=== PATIENT | male | born 2000 | race Caucasian/White ===

== ENCOUNTER 2022-08-20 21:21 | Inpatient (IN) | payer OTHER ==
[~2022-08-20] VITALS: Ht 180.3 cm; Wt 75.0 kg
[2022-08-20 22:24] LABS: HEMATOCRIT 45.8 % (42.0-52.0); HEMOGLOBIN 15.3 g/dl (13.5-17.5); MEAN CORPUSCULAR HEMOGLOBIN 30.2 pg (27.0-33.0); MEAN CORPUSCULAR HGB CONC 33.4 g/dl (32.0-36.5); MEAN CORPUSCULAR VOLUME 90.3 fl (80.0-96.0); PLATELET COUNT, AUTOMATED 265 10^3/uL (150-450); RED BLOOD COUNT 5.07 10^6/uL (4.30-6.10); WHITE BLOOD COUNT 5.4 10^3/uL (4.0-10.0)
[2022-08-20 22:46] LABS: RSV AMPLIFICATION NEGATIVE (NEGATIVE)
[2022-08-20 22:53] LABS: ACETAMINOPHEN LEVEL < 2.0 UG/ML (10.0-30.0); ALBUMIN 4.2 GM/DL (3.2-5.2); ALT/SGPT 32 U/L (12-78); BILIRUBIN,DIRECT 0.2 MG/DL (0.0-0.2); BLOOD UREA NITROGEN 13 MG/DL (7-18); CALCIUM LEVEL 8.5 MG/DL (8.5-10.1); CARBON DIOXIDE LEVEL 24 MEQ/L (21-32); CHLORIDE LEVEL 113 MEQ/L (98-107); CREATININE FOR GFR 1.13 MG/DL (0.70-1.30); ETHYL ALCOHOL (ETHANOL) 0.275 % (0.000-0.010); GLOMERULAR FILTRATION RATE > 60.0 (>60); GLUCOSE, FASTING 104 MG/DL (70-100); POTASSIUM SERUM 4.1 MEQ/L (3.5-5.1); SALICYLATE LEVEL < 1.7 MG/DL (5.0-30.0); SODIUM LEVEL 145 MEQ/L (136-145); THYROID STIMULATING HORMONE 0.873 uIU/ML (0.358-3.740); TOTAL PROTEIN 7.4 GM/DL (6.4-8.2)
[2022-08-20 23:36] LABS: AMPHETAMINES LEVEL URINE NEGATIVE (NEGATIVE); BARBITURATES URINE NEGATIVE (NEGATIVE); BENZODIAZEPINES URINE NEGATIVE (NEGATIVE); CANNABINOIDS URINE NEGATIVE (NEGATIVE); COCAINE METABOLITE URINE NEGATIVE (NEGATIVE); METHADONE URINE NEGATIVE (NEGATIVE); OPIATES URINE NEGATIVE (NEGATIVE); PHENCYCLIDINE URINE NEGATIVE (NEGATIVE)
[2022-08-21] MEDS ORDERED: HOME MED LIST COMPLETE! XX SCH (11:30)
[2022-08-21] MEDS: THIAMINE 100 MG TAB PO SCH (21:00)
[2022-08-21 22:59] VITALS: BP 124/66
[2022-08-22] MEDS ORDERED: MAALOX 30 ML SUSP *UDC PO PRN
[2022-08-22] MEDS ORDERED: MOM 30ML SUSPENSION UDC PO PRN
[2022-08-22] MEDS ORDERED: LORazepam 2 MG TAB PO PRN
[2022-08-22] MEDS ORDERED: traZODone 50 MG TAB PO PRN
[2022-08-22] MEDS ORDERED: ACETAMINOPHEN TAB 650MG DOSE (2X325MG) PO PRN
[2022-08-22 00:25] VITALS: BP 134/86
[2022-08-22] MEDS: FOLIC ACID 1MG TAB PO SCH (09:27)
[2022-08-22] MEDS: THIAMINE 100 MG TAB PO SCH ×2 (09:27→21:44)
[2022-08-22] MEDS: MULTIVITAMINS/MINERALS THERAP 1 TAB PO SCH (09:27)
[2022-08-22 18:21] VITALS: BP 108/60
[2022-08-22 22:41] VITALS: BP 136/82
[2022-08-23 06:43] VITALS: BP 120/70
[2022-08-23 06:44] VITALS: BP 120/70
[2022-08-23] MEDS: THIAMINE 100 MG TAB PO SCH ×2 (10:46→21:58)
[2022-08-23] MEDS: FOLIC ACID 1MG TAB PO SCH (10:46)
[2022-08-23] MEDS: MULTIVITAMINS/MINERALS THERAP 1 TAB PO SCH (10:46)
[2022-08-23 14:38] VITALS: BP 137/86
[2022-08-23 18:14] VITALS: BP 115/67
[2022-08-24 06:55] VITALS: BP 148/87
[2022-08-24] MEDS: THIAMINE 100 MG TAB PO SCH (08:57)
[2022-08-24 17:57] VITALS: BP 140/62
[2022-08-25 06:35] VITALS: BP 155/98
== END 2022-08-25 09:46 | disposition home or self-care (01) | DRG 881 ==
LOC: M ED 21:21 → M ED INP 08-21 23:56 → M PSY 08-22 00:22
PROVIDERS: ADMIT Psychiatry & Neurology Psychiatry; ATTEND Psychiatry & Neurology Psychiatry
DX: F32.A Depression, unspecified (principal); R45.851 Suicidal ideations; F10.10 Alcohol abuse, uncomplicated